=== PATIENT | female | born 1965 | race Caucasian/White ===

== ENCOUNTER → 2017-08-24 | Outpatient (CLI) | payer BC ==
--- NOTE | 2017-08-24 14:36 | XR ---
EXAMINATION TYPE: XR knee 4V RT DATE OF EXAM: 08/24/2017 CLINICAL HISTORY: Right knee pain for 6 months. TECHNIQUE: Three views of the right knee are obtained. Fourth sunrise view was acquired. COMPARISON: None. FINDINGS: There is no acute fracture/dislocation evident in right knee. There is mild tricompartment joint space loss. Mild spurring lateral tibiofemoral compartment is seen. Patellar articulation is w ithin normal limits on sunrise view. The overlying soft tissue appears unremarkable. IMPRESSION: There are mild degenerative changes in right knee as detailed above.
== END | disposition home or self-care (01) ==
LOC: RADXRYALE 14:13
PROVIDERS: ATTEND Physician Assistant Medical
DX: M25.861 Other specified joint disorders, right knee (principal); M25.561 Pain in right knee; M22.2X1 Patellofemoral disorders, right knee

== ENCOUNTER → 2018-07-15 | Outpatient (CLI) | payer BC ==
--- NOTE | 2018-07-15 15:57 | XR ---
EXAMINATION TYPE: XR lumbosacral spine min 4V DATE OF EXAM: 07/15/2018 COMPARISON: None HISTORY: Sciatica left hip pain TECHNIQUE: Five-view lumbar spine FINDINGS: There 5 lumbar-type tubal bodies. Pedicles are intact. Disc heights are preserved. Vertebra l body heights are preserved. Facets visualized normal. The one oblique view is suboptimal. IMPRESSION: 1. Lumbar spine as visualized appears unremarkable.
--- NOTE | 2018-07-15 15:58 | XR ---
EXAMINATION TYPE: XR Hip Complete LT DATE OF EXAM: 07/15/2018 COMPARISON: None HISTORY: Left hip pain TECHNIQUE: 2 view left hip FINDINGS: There is narrowing of the joint space No acute fractures are evident. Some minimal spurring is noted. IMPRESSION: 1. Mild to moderate degenerative changes left hip.
== END ==
LOC: RADXRYALE 15:02
PROVIDERS: ATTEND Physician Assistant Medical
DX: M16.12 Unilateral primary osteoarthritis, left hip (principal); M54.42 Lumbago with sciatica, left side
CPT/HCPCS: 72110; 73502

== ENCOUNTER 2020-08-02 11:41 | Emergency (ER) | payer BC ==
[2020-08-02] MEDS ORDERED: SODIUM CHLORIDE 0.9% 1,000 ML IV STA (11:53)
[2020-08-02 12:52] LABS: Basophils % (A) 0 %; Eosinophils # (A) 0.2 k/uL (0-0.7); Eosinophils % (A) 2 %; HCT 47.1 % (34.0-46.0); Lymphocytes # (A) 1.4 k/uL (1.0-4.8); Lymphocytes % (A) 17 %; MCH 32.6 pg (25.0-35.0); MCHC 34.1 g/dL (31.0-37.0); MCV 95.7 fL (80.0-100.0); Mean Platelet Volume 6.9; Monocytes # (A) 0.5 k/uL (0-1.0); Monocytes % (A) 5 %; Neutrophils # (A) 6.2 k/uL (1.3-7.7); Neutrophils % (A) 74 %; Platelet Count 230 k/uL (150-450); RBC 4.92 m/uL (3.80-5.40); WBC 8.4 k/uL (3.8-10.6)
[2020-08-02 12:55] LABS: ALT 30 U/L (4-34); AST 29 U/L (14-36); African American GFR (CKD) >90 (>60 ml/min/1.73 sqM); Alkaline Phosphatase 98 U/L (38-126); Anion Gap 9 mmol/L; Blood Urea Nitrogen 19 mg/dL (7-17); Calcium 8.8 mg/dL (8.4-10.2); Carbon Dioxide 22 mmol/L (22-30); Chloride 107 mmol/L (98-107); Glucose 109 mg/dL (74-99); Non-African American GFR(CKD) >90 (>60 ml/min/1.73 sqM); Potassium 4.7 mmol/L (3.5-5.1); Sodium 138 mmol/L (137-145); Total Bilirubin 0.7 mg/dL (0.2-1.3); Total Protein 7.8 g/dL (6.3-8.2)
--- NOTE | 2020-08-02 13:31 | CT ---
EXAMINATION TYPE: CT abdomen pelvis w con DATE OF EXAM: 08/02/2020 COMPARISON: None HISTORY: abnormal KUB, possible free air CT DLP: [id number] mGycm Automated exposure control for dose reduction was used. TECHNIQUE: Helical acquisition of images from the lung bases through the pelvis have been completed. CONTRAST: Performed without Oral Contrast and with IV Contrast, patient injected with 100 mL of Isovue 300. FINDINGS: LUNG BASES: No significant abnormality is appreciated. AORTA: No significant abnormality is appreciated. LIVER/GB: Liver shows low attenuation likely due to hepatic steatosis, gallbladder somewhat distended . The liver is markedly enlarged. PANCREAS: No significant abnormality is seen. SPLEEN: No significant abnormality is seen. ADRENALS: No significant abnormality is seen. KIDNEYS: There are nonobstructive calculi present within the left kidney lower pole measures 6 to 7 m m, in the region of the renal pelvis may be a vascular calcification REPRODUCTIVE ORGANS: Not seen BOWEL: No significant abnormality is seen. The appendix is normal. FREE AIR: No Free Air visible. ASCITES: None visible. PELVIC ADENOPATHY: None visualized. RETROPERITONEAL ADENOPATHY: No Retroperitoneal Adenopathy visible. URINARY BLADDER: No significant abnormality is seen. OSSEOUS STRUCTURES: Degenerative disc changes are present in the lumbar spine. IMPRESSION: LEFT-SIDED NEPHROLITHIASIS. HEPATIC STEATOSIS, HEPATOMEGALY. POSTOP CHANGES.
--- NOTE | 2020-08-02 13:38 | ED ---
Back Pain HPI - General Chief Complaint: Back Pain/Injury Stated Complaint: kidney stone Time Seen by Provider: 08/02/20 11:52 Source: patient Limitations: no limitations - History of Present Illness Initial Comments: 54yo female with history of kidney stones presenting to the hospital "because she was sent from [facility]", patient states that she initially presented to [facility] secondary to left flank pain. Pt states that she frqueny gets kidney stones and this pain felt similar She states they performed a KUB and thought they saw an area of free air. Pt denies abdominal pain. States she had some nausea and vomiting associated with the left flank pain. Denies fevers, chills, general malaise. Denies CP, SOB or trauma to the back. Patient states the only reason she is here now it to make sure there is no free air in her abdomen beecause after [facility] gave her toradol IM 60mg she has felt "fine". Patient appears well in good spirits on arrival does not appear uncomfortable. - Related Data Previous Rx's Medication Instructions Recorded Cephalexin [Keflex] 500 mg PO Q6HR 7 Days #28 cap 08/02/20 Allergies Allergy/AdvReac Type Severity Reaction Status Date / Time clindamycin Allergy Unknown Verified 08/02/20 11:46 Review of Systems ROS Statement: Those systems with pertinent positive or pertinent negative responses have been documented in the HPI. ROS Other: All systems not noted in ROS Statement are negative. Past Medical History Past Medical History: No Reported History History of Any Multi-Drug Resistant Organisms: None Reported Past Surgical History: Section, Hysterectomy Past Psychological History: No Psychological Hx Reported Smoking Status: Never smoker Past Alcohol Use History: None Reported Past Drug Use History: None Reported General Exam - General Exam Comments Initial Comments: General: The patient is awake and alert, in no distress, and does not appear acutely ill. Eye: Pupils are equal, round and reactive to light, extra-ocular movements are intact. No nystagmus. There is normal conjunctiva bilaterally. No signs of icterus. Cardiovascular: There is a regular rate and rhythm. No murmur, rub or gallop is appreciated. Respiratory: Lungs are clear to auscultation, respirations are non-labored, breath sounds are equal. No wheezes, stridor, rales, or rhonchi. Gastrointestinal: Soft, non-distended, non-tender abdomen without masses or organomegaly noted. There is no rebound or guarding present. Musculoskeletal: Normal ROM, no tenderness. Strength 5/5. Sensation intact. Radial pulses equal bilaterally 2+. Neurological: A&O x 3. CN II-XII intact grossly, There are no obvious motor or sensory deficits. Coordination appears grossly intact. Speech is normal. Skin: Skin is warm and dry and no rashes or lesions are noted. Psychiatric: Cooperative, appropriate mood & affect, normal judgment. Limitations: no limitations Course Vital Signs 08/02/20 08/02/20 08/02/20 11:47 13:46 14:51 Temperature 98.4 F 98.1 F Pulse Rate 98 87 84 Respiratory 16 18 16 Rate Blood Pressure 130/64 129/81 112/68 O2 Sat by Pulse 96 99 99 Oximetry Medical Decision Making - Medical Decision Making CT no urolithatisis, nephrolithasis present. no current pain. No free air. no abdominal tenderness or hx consistent with pneumoperitoneum. Patient labs stable some findings. UA findings could be consistent with infection. Patient iwill be discharged with urology f/u and is to return for flank pain/fevers or any other concerning new symptoms. Patient discharged appearing well after discussing case [facility] > [place] - Lab Data Result diagrams: 08/02/20 12:33 08/02/20 12:33 Lab Results 08/02/20 08/02/20 08/02/20 Range/Units 12:33 12:33 13:45 WBC 8.4 (3.8-10.6) k/uL RBC 4.92 (3.80-5.40) m/uL Hgb 16.0 (11.4-16.0) gm/dL Hct 47.1 H (34.0-46.0) % MCV 95.7 (80.0-100.0) fL MCH 32.6 (25.0-35.0) pg MCHC 34.1 (31.0-37.0) g/dL RDW 13.0 (11.5-15.5) % Plt Count 230 (150-450) k/uL Neutrophils % 74 % Lymphocytes % 17 % Monocytes % 5 % Eosinophils % 2 % Basophils % 0 % Neutrophils # 6.2 (1.3-7.7) k/uL Lymphocytes # 1.4 (1.0-4.8) k/uL Monocytes # 0.5 (0-1.0) k/uL Eosinophils # 0.2 (0-0.7) k/uL Basophils # 0.0 (0-0.2) k/uL Sodium 138 (137-145) mmol/L Potassium 4.7 (3.5-5.1) mmol/L Chloride 107 (98-107) mmol/L Carbon Dioxide 22 (22-30) mmol/L Anion Gap 9 mmol/L BUN 19 H (7-17) mg/dL Creatinine 0.75 (0.52-1.04) mg/dL Est GFR (CKD-EPI)AfAm >90 (>60 ml/min/1.73 sqM) Est GFR (CKD-EPI)NonAf >90 (>60 ml/min/1.73 sqM) Glucose 109 H (74-99) mg/dL Calcium 8.8 (8.4-10.2) mg/dL Total Bilirubin 0.7 (0.2-1.3) mg/dL AST 29 (14-36) U/L ALT 30 (4-34) U/L Alkaline Phosphatase 98 (38-126) U/L Total Protein 7.8 (6.3-8.2) g/dL Albumin 4.0 (3.5-5.0) g/dL Urine Color Yellow Urine Appearance Clear (Clear) Urine pH 6.0 (5.0-8.0) Ur Specific [place] 1.050 H (1.001-1.035) Urine Protein Trace H (Negative) Urine Glucose (UA) Negative (Negative) Urine Ketones Negative (Negative) Urine Blood Small H (Negative) Urine Nitrite Negative (Negative) Urine Bilirubin Negative (Negative) Urine Urobilinogen <2.0 (<2.0) mg/dL Ur Leukocyte Esterase Moderate H (Negative) Urine RBC 9 H (0-5) /hpf Urine WBC 11 H (0-5) /hpf Ur Squamous Epith Cells 3 (0-4) /hpf Urine Mucus Few H (None) /hpf Disposition Clinical Impression: Flank pain, UTI (urinary tract infection) Disposition: HOME SELF-CARE Condition: Good Instructions (If sedation given, give patient instructions): Kidney Stones (ED) Additional Instructions: Please use medication as discussed. Please follow-up with urology and PCP in next 2-5 days. Please return to emergency room if the symptoms increase or worsen or for any other concerns. Prescriptions: Cephalexin [Keflex] 500 mg PO Q6HR 7 Days #28 cap Is patient prescribed a controlled substance at d/c from ED?: No Referrals: Humberto Walker DO [Primary Care Provider] - 1-2 days Ralph Sherwood MD [STAFF PHYSICIAN] - 1-2 days Time of Disposition: 13:37
[2020-08-02 14:17] LABS: Appearance,Urine Clear (Clear); Bilirubin,Urine Negative (Negative); Blood,Urine Small (Negative); Color,Urine Yellow; Glucose,Urine (UA) Negative (Negative); Ketones,Urine Negative (Negative); Leukocyte Esterase,Urine Moderate (Negative); Mucus,Urine Few /hpf; Nitrite,Urine Negative (Negative); Protein,Urine Trace (Negative); RBC,Urine 9 /hpf (0-5); Squamous Epithelial Cell,Urine 3 /hpf (0-4); Urobilinogen,Urine <2.0 mg/dL (<2.0); WBC,Urine 11 /hpf (0-5)
[2020-08-02 14:52] VITALS: BP 112/68; PULSE 84; RESP 16; TEMP 98.1
== END 2020-08-02 14:52 | disposition home or self-care (01) ==
LOC: EC 11:41
DX: N39.0 Urinary tract infection, site not specified (principal); Z88.1 Allergy status to other antibiotic agents; Z90.710 Acquired absence of both cervix and uterus
CPT/HCPCS: 36415; 80053; 85025; 81001; 74177; 99284; 96360; 96361; Q9967

== ENCOUNTER → 2022-01-16 | Outpatient (CLI) | payer BC ==
--- NOTE | 2022-01-20 14:36 | MM ---
Reason for exam: screening (asymptomatic). Last mammogram was performed 8 years and 5 months ago. Physical Findings: A clinical breast exam by your physician is recommended on an annual basis and results should be correlated with mammographic findings. MG Screening Mammo w CAD Bilateral CC, MLO, and XCCL view(s) were taken. Prior study comparison: August 25, 2013, bilateral digital screening mammo w/CAD. November 08, 2009, mammogram, performed at [facility]. There are scattered fibroglandular densities. There are benign appearing round linear calcifications bilaterally. There is no discrete abnormality. ASSESSMENT: Benign, BI-RAD 2 RECOMMENDATION: Routine screening mammogram of both breasts in 1 year.
== END | disposition home or self-care (01) ==
LOC: RADMAMWWP 10:39
PROVIDERS: ATTEND Family Medicine
DX: Z12.31 Encounter for screening mammogram for malignant neoplasm of breast (principal)
CPT/HCPCS: 77067

== ENCOUNTER → 2023-02-15 | Outpatient (CLI) | payer BC ==
--- NOTE | 2023-02-16 11:01 | MM ---
Reason for Exam: Screening (asymptomatic). Last mammogram was performed 1 year(s) and 1 month(s) ago. Patient History: Menarche at age 12. First Full-Term at age 16. Left ovary removed at age 44. Right ovary removed at age 44. Hysterectomy at age 44. Risk Values: Neli 5 year model risk: 1.0%. NCI Lifetime model risk: 6.4%. Prior Study Comparison: 11/08/2009 Screening Mammogram, [facility]. 08/25/2013 Bilateral Screening Mammogram, [facility]. 01/16/2022 Bilateral Screening Mammogram, [facility]. Tissue Density: There are scattered fibroglandular densities. Findings: Analyzed By CAD. Pattern appears Symmetrical and stable. Multiple benign scattered round calcifications are present bilaterally. No significant interval changes are evident. No suspicious groups of microcalcifications, spiculated or lobular masses, architectural distortion or other secondary signs of malignancy are mammographically apparent. Overall Assessment: Benign, BI-RAD 2 Management: Screening Mammogram of both breasts in 1 year. A negative mammogram report should not preclude additional follow up of suspicious palpable abnormalities. Patient should continue monthly self breast exam. A clinical breast exam by your physician is recommended on an annual basis and results should be correlated with mammographic findings. Electronically signed and approved by: Ciaran Hernández D.O. Radiologis
== END | disposition home or self-care (01) ==
LOC: RADMAMWWP 14:12
PROVIDERS: ATTEND Family Medicine
DX: Z12.31 Encounter for screening mammogram for malignant neoplasm of breast (principal)
CPT/HCPCS: 77067

== ENCOUNTER → 2024-09-19 | Outpatient (CLI) | payer BC ==
--- NOTE | 2024-09-20 10:02 | MM ---
Reason for Exam: Screening (asymptomatic). Last mammogram was performed 1 year(s) and 7 month(s) ago. Patient History: Menarche at age 12. First Full-Term at age 16. Left ovary removed at age 44. Right ovary removed at age 44. Hysterectomy at age 44. Postmenopausal. Risk Values: Neli 5 year model risk: 1.0%. NCI Lifetime model risk: 6.3%. Prior Study Comparison: 08/25/2013 Bilateral Screening Mammogram, [facility]. 01/16/2022 Bilateral Screening Mammogram, [facility]. 02/15/2023 Bilateral MG screening mammo w CAD, [facility]. Tissue Density: There are scattered areas of fibroglandular density. Findings: Analyzed By CAD. There is no suspicious group of microcalcifications or new suspicious mass in either breast. Overall Assessment: Benign, BI-RAD 2 Management: Screening Mammogram of both breasts in 1 year. . Patient should continue monthly self-breast exams. A clinical breast exam by your physician is recommended on an annual basis. This exam should not preclude additional follow-up of suspicious palpable abnormalities. Note on Neli scores and lifetime risk: 1. A Neli score greater than 3% is considered moderate risk. If this is the case, consider specialist referral to assess eligibility for a risk reducing agent. 2. If overall lifetime risk for the development of breast cancer is 20% or higher, the patient may qualify for future screening with alternating mammogram and breast MRI. [facility], , 09/20/2024 9:59 AM. Electronically signed and approved by: Cesar Kilpatrick M.D. Radiologis
== END | disposition home or self-care (01) ==
LOC: RADMAMWWP 16:38
PROVIDERS: ATTEND Family Medicine
DX: Z12.31 Encounter for screening mammogram for malignant neoplasm of breast (principal); R92.323 Mammographic fibroglandular density, bilateral breasts; Z78.0 Asymptomatic menopausal state; Z90.722 Acquired absence of ovaries, bilateral
CPT/HCPCS: 77067